=== PATIENT | female | born 1960 | race Caucasian/White ===

== ENCOUNTER 2018-11-01 13:24 | Inpatient (IN) | payer OTHER ==
--- NOTE | 2018-11-01 13:44 | PDOC ---
History of Present Illness - General Chief Complaint: Rectal Bleed Stated Complaint: Pain Time Seen by Provider: 11/01/18 13:29 - History of Present Illness Initial Comments: 58 yo F h/o asthma, gastritis, external hemorroids, multisubstance abuse ( cocaine, cig and EtOH) p/w bloody stool x 2 episodes since last night. She endorses chunks of bright red blood in stool associated with dizziness, abd pain , diaphoresis. She described the first episode of bloody stool as diarrhea mixed with blood, second episode as chunks of blood without diarrhea. The abd pain is located in b/l lower quadrants, travels left to right then vice versa, 8 /10, comes and goes, sharp. Last colonoscopy 2 years ago with findings of poylps and external hemorroids, told to repeat in 3 years. Denies NSAID use, fever, chills. 11/01/18 13:51 Send CBC, CMP, coags, EKG, T&S 11/01/18 14:32 Labs normal, pending rectal exam. will repeat cbc in 3 hours and observe the pt for any more bleeding Past History - Past Medical History Allergies/Adverse Reactions: Allergies Allergy/AdvReac Type Severity Reaction Status Date / Time No Known Allergies Allergy Verified 11/01/18 13:30 Home Medications: Ambulatory Orders Unobtainable 11/01/18 - Suicide/Smoking/Psychosocial Hx Smoking History: Current every day smoker Number of Cigarettes Smoked Daily: 10 Information on smoking cessation initiated: No Hx Alcohol Use: Yes (1 pint vodka daily x 1 month) Drug/Substance Use Hx: No Substance Use Type: Cocaine (last use yesterday sniffed) Review of Systems - Review of Systems Able to Perform ROS?: Yes Is the patient limited Haitian proficient: No Constitutional: No: Chills, Fever Respiratory: No: Cough, Shortness of Breath Cardiac (ROS): No: Chest Pain ABD/GI: Yes: Rectal Bleeding *Physical Exam - Vital Signs Last Vital Signs Temp Pulse Resp BP Pulse Ox 98.1 F 110 H 20 130/81 98 11/01/18 13:30 11/01/18 13:30 11/01/18 13:30 11/01/18 13:30 11/01/18 13:30 - Physical Exam General Appearance: Yes: Appropriately Dressed, Other (in pain, uncomfortable) Respiratory/Chest: positive: Lungs Clear, Normal Breath Sounds Cardiovascular: positive: S1, S2, Tachycardia. negative: Edema, JVD, Murmur Gastrointestinal/Abdominal: positive: Normal Bowel Sounds, Tender, Soft. negative: Guarding, Rebound Rectal Exam: positive: heme positive stool, hemorrhoids (external) Neurologic: positive: egg gatherer II-XII NML intact, Fully Oriented, Alert ED Treatment Course - LABORATORY CBC & Chemistry Diagram: 11/01/18 13:46 11/01/18 13:46 *DC/Admit/Observation/Transfer Diagnosis at time of Disposition: Bleeding per rectum - Discharge Dispostion Decision to Admit order: Yes - Referrals - Patient Instructions - Post Discharge Activity
[2018-11-01 13:57] LABS: BASO % 0.9 % (0-2.0); EOS % 1.5 % (0-4.5); HEMOGLOBIN 15.5 GM/dL (10.7-15.3); LYMPH % 20.2 % (8-40); MCH 30.7 pg (25.7-33.7); MCHC 32.9 g/dl (32.0-36.0); MEAN CELL VOLUME 93.3 fl (80-96); MEAN PLT VOLUME 7.8 fl (7.5-11.1); MONO % 6.2 % (3.8-10.2); NEUT % 71.2 % (42.8-82.8); PLATELET COUNT 304 K/MM3 (134-434); RBC 5.04 M/mm3 (3.60-5.2); RDW 14.2 % (11.6-15.6); WHITE BLOOD COUNT 7.7 K/mm3 (4.0-10.0)
[2018-11-01] MEDS ORDERED: SIMETHICONE 80 MG TAB.CHEW (FP) PO ONE ×2 (14:10→15:12)
[2018-11-01 14:15] LABS: INR 1.03 (0.83-1.09); PROTHROMBIN TIME (PATIENT) 12.1 SEC (9.7-13.0)
[2018-11-01 14:17] LABS: ACTIVATED PTT 31.6 SECONDS (25.2-36.5)
[2018-11-01 14:20] LABS: ALBUMIN 3.5 g/dl (3.4-5.0); ALK PHOS 83 U/L (45-117); ANION GAP 5 MMOL/L (8-16); BILIRUBIN,TOTAL 0.5 mg/dL (0.2-1); BLOOD UREA NITROGEN 13 mg/dL (7-18); CHLORIDE 107 mmol/L (98-107); CO2 26 mmol/L (21-32); GLUCOSE,RANDOM 117 mg/dL (74-106); POTASSIUM 3.7 mmol/L (3.5-5.1); SGOT/AST 23 U/L (15-37); SGPT/ALT 22 U/L (13-61); SODIUM 139 mmol/L (136-145); TOT PROT 6.8 g/dl (6.4-8.2)
[2018-11-01] MEDS ORDERED: MAG HYDROX/AL HYDROX/SIMETH 30 ML UNIT-DOSE CUP PO ONE (14:51)
--- NOTE | 2018-11-01 15:29 | PDOC ---
Attending Attestation - Resident Resident Name: Isai Darby - ED Attending Attestation I have performed the following: I have examined & evaluated the patient, The case was reviewed & discussed with the resident, I agree w/resident's findings & plan, Exceptions are as noted - HPI HPI: 11/01/18 16:19 The patient is a 58 year old female, with a significant PMH of asthma, gastritis , external hemorrhoids, multi substance abuse (cocaine, tobacco and EtOH) who presents to the emergency department with 2 episodes of bright red blood per rectum last night. The patient states she had chunks and clots of bright red blood in the toilet mixed with her brown stool with associated lightheadness, abdominal cramping and diaphoresis. The patient describes the abdominal pain as sharp, intermittent, radiating back and forth from the LLQ to RLQ, rated 8/10 in intensity. The patient states her most recent colonoscopy was 2 years ago and GI found polyps and external hemorrhoids, told to repeat in 3 years. The patient denies chest pain, shortness of breath, headache. Denies fever, chills, nausea, vomit and constipation. Denies dysuria, frequency, urgency and hematuria. Allergies: NKA - Physicial Exam PE: 11/01/18 16:21 agree with resident exam Well appearing, comfortable tachycardic but regular, no MRG CTAB No abd ttp, no rebound, guarding, or distention Equal strength and sensation b/l No LE edema - Medical Decision Making 11/01/18 16:12 58yo F hx CAD, DM presents to the ED with BRBPR x2, including clots. Vitals with tachycardia, otherwise wnl. Exam with no abd ttp. Concern for diverticulosis bleed. Plan to check labs, admit to observation. Will hold off on imaging at this time as pt is not tender on serial abd exams. Pt accepted for admission to Dr. Alberts Case discussed in detail with admitting physician including history, physical exam and ancillary studies. Admitting physician has assumed care for the patient, will follow all pending diagnostics and will complete the evaluation and treatment. Heart Score/ECG Review #1 11/01/18 16:26 Twelve-lead EKG was performed and reviewed by me. Normal sinus rhythm, rate 74. Normal axis. No ST elevations or T-wave inversions.
--- NOTE | 2018-11-01 16:24 | HP ---
Admitting History and Physical - Admission Chief Complaint: came in for abdominal pain and bloody stools History of Present Illness: 58 yo F h/o asthma, gastritis, external hemorroids, multisubstance abuse ( cocaine, cig and EtOH) p/w bloody stool x 2 episodes since last night. She endorses chunks of bright red blood in stool associated with dizziness, abd pain , diaphoresis. She described the first episode of bloody stool as diarrhea mixed with blood, second episode as chunks of blood without diarrhea. The abd pain is located in b/l lower quadrants, travels left to right then vice versa, , comes and goes, sharp. Last colonoscopy 2 years ago with findings of poylps and external hemorroids, told to repeat in 3 years. Denies NSAID use, fever, chills. History Source: Patient - Past Medical History Pulmonary: Yes: Asthma Gastrointestinal: Yes: Gastritis - Smoking History Smoking history: Current every day smoker Aproximately how many cigarettes per day: 10 - Alcohol/Substance Use Hx Alcohol Use: Yes (1 pint vodka daily x 1 month) Home Medications - Allergies Allergies/Adverse Reactions: Allergies Allergy/AdvReac Type Severity Reaction Status Date / Time No Known Allergies Allergy Verified 11/01/18 13:30 - Home Medications Home Medications: Ambulatory Orders Unobtainable 11/01/18 Physical Examination Vital Signs: Vital Signs Temperature 98.1 F 11/01/18 13:30 Pulse Rate 110 H 11/01/18 13:30 Respiratory Rate 20 11/01/18 13:30 Blood Pressure 130/81 11/01/18 13:30 O2 Sat by Pulse Oximetry (%) 98 11/01/18 13:30 Labs: CBC, BMP 11/01/18 13:46 11/01/18 13:46 Problem List - Problems (1) Bleeding per rectum Assessment/Plan: nPO ivf cbc q8hr ppi gi consult ct scan Code(s): K62.5 - HEMORRHAGE OF ANUS AND RECTUM
[2018-11-01] MEDS ORDERED: MORPHINE SULFATE 2 MG/ML VIAL IVPUSH PRN (16:25)
[2018-11-01] MEDS ORDERED: SODIUM CHLORIDE 1,000 ML IV SCH (16:30)
[2018-11-01 20:59] VITALS: BMI 22.3
[2018-11-01] MEDS ORDERED: PT OWN MED DRAWER 7, Y5N ONE (21:41)
[2018-11-01] MEDS: PANTOPRAZOLE SODIUM 40 MG VIAL IVPUSH SCH (21:58)
[2018-11-02 07:43] LABS: HEMATOCRIT 39.9 % (32.4-45.2); HEMOGLOBIN 13.1 GM/dL (10.7-15.3); MCH 30.4 pg (25.7-33.7); MCHC 32.8 g/dl (32.0-36.0); MEAN CELL VOLUME 92.8 fl (80-96); MEAN PLT VOLUME 7.9 fl (7.5-11.1); PLATELET COUNT 267 K/MM3 (134-434); RDW 13.8 % (11.6-15.6); WHITE BLOOD COUNT 6.3 K/mm3 (4.0-10.0)
[2018-11-02 08:01] LABS: ALBUMIN 2.8 g/dl (3.4-5.0); ALK PHOS 68 U/L (45-117); AMYLASE 30 U/L (25-115); ANION GAP 6 MMOL/L (8-16); BILIRUBIN,TOTAL 0.4 mg/dL (0.2-1); BLOOD UREA NITROGEN 11 mg/dL (7-18); CALCIUM 8.2 mg/dL (8.5-10.1); CHLORIDE 111 mmol/L (98-107); CO2 25 mmol/L (21-32); CREATININE 0.8 mg/dL (0.55-1.3); GLUCOSE,RANDOM 65 mg/dL (74-106); LIPASE 82 U/L (73-393); MAGNESIUM 1.9 mg/dL (1.8-2.4); PHOSPHOROUS 3.2 mg/dL (2.5-4.9); POTASSIUM 3.4 mmol/L (3.5-5.1); SGOT/AST 15 U/L (15-37); SGPT/ALT 22 U/L (13-61); SODIUM 142 mmol/L (136-145); TOT PROT 5.6 g/dl (6.4-8.2)
[2018-11-02] MEDS: PANTOPRAZOLE SODIUM 40 MG VIAL IVPUSH SCH (10:03)
--- NOTE | 2018-11-02 10:22 | CON.GI ---
Consult Consult Specialty:: GI: For Dr. James who resumes care 11/04 Referred by:: Dr. Lexus Avalos Reason for Consultation:: Rectal bleeding - History of Present Illness Chief Complaint: Rectal bleeding and abdominal pain History of Present Illness: 58F admitted for evaluation of rectal bleeding and abdominal pain. She states that she was in [place] up until 2 days ago when she developed lower abdominal pain along with rectal bleeding. The night prior she used intranasal cocaine and drank alcohol. No bleeding today. Last bleeding yesterday. No similar episodes in the past but believes that she had an episode of diverticulitis in [place] a couple of years ago. She believes that her last colonoscopy was 2 years ago in [place], that polyps were removed and a 3 year follow-up was advised. - History Source History Provided By: Patient - Past Medical History Pulmonary: Yes: Asthma Gastrointestinal: Yes: Diverticulitis, Diverticulosis, Gastritis, Other (Colon polyps) ...: No Psych: Yes: Addictions (Intranasal cocaine and etoh abuse) - Past Surgical History Additional Surgical History: Denies - Alcohol/Substance Use Hx Alcohol Use: Yes (1 pint vodka daily x 1 month) History of Substance Use: reports: Cocaine - Smoking History Smoking history: Current every day smoker Aproximately how many cigarettes per day: 10 - Social History Usual Living Arrangement: Alone ADL: Independent Occupation: Dump[employer] Place of : [facility] History of Recent Travel: No Home Medications - Allergies Allergies/Adverse Reactions: Allergies Allergy/AdvReac Type Severity Reaction Status Date / Time No Known Allergies Allergy Verified 11/01/18 13:30 - Home Medications Home Medications: Ambulatory Orders Unobtainable 11/01/18 Family Disease History - Family Disease History Family Disease History: Other: Father (Alive: dementia), Mother (: 82: Lung Ca), Brother (4, 1 ), Son (1, healthy), Daughter (3, healthy) Other Family History: No family h/o colon cancer or other GI malignancy Review of Systems - Review of Systems Constitutional: denies: Chills Cardiovascular: denies: Chest Pain Respiratory: denies: Cough, SOB Gastrointestinal: reports: Abdominal Pain, Rectal Bleeding Physical Exam-GI Vital Signs: Vital Signs Temperature 98 F 11/02/18 05:00 Pulse Rate 82 11/02/18 05:00 Respiratory Rate 18 11/02/18 05:00 Blood Pressure 143/77 11/02/18 05:00 O2 Sat by Pulse Oximetry (%) 98 11/02/18 04:00 Constitutional: Yes: Calm Eyes: No: Sclera Icterus Cardiovascular: Yes: Regular Rate and Rhythm. No: Murmur Respiratory: Yes: CTA Bilaterally Gastrointestinal Inspection: No: Scars ...Auscultate: Yes: Normoactive Bowel Sounds ...Palpate: Yes: Soft, Tenderness (TTP LLQ) ...Percussion: No: Tympanitic ...Rectal Exam: Yes: Other (Senior Principal Process Engineer present: + rectal prolapse, light brown stool in rectal vault, no blood) Edema: No (No LE edema) Neurological: Yes: Alert, Oriented Labs: CBC, BMP 11/02/18 05:00 11/02/18 05:00 INR, PTT INR 1.03 (0.83-1.09) 11/01/18 13:46 Imaging - Results Cat Scan: Image Reviewed (Not read yet: images reviewed: fat stranding around proximal sigmoid and to lesser extent distal descending. + diverticulosis.) Problem List - Problems (1) Colitis Assessment/Plan: Suspect ischemic colitis in the setting of intranasal cocaine use given location of inflammatory changes in CT scan and painful rectal bleeding. Diverticulitis remains in differential as well. Advise: NPO except meds IV hydration IV Abx AM Labs If worsening pain / fevere / leukocytosis, obtain surgical consult If LLQ pain improving, advance to clears Will need follow-up with her rn infusion upon discharge Advised need for cocaine/alcohol cessation. Will need further substance abuse counseling per PMD Code(s): K52.9 - NONINFECTIVE GASTROENTERITIS AND COLITIS, UNSPECIFIED
[2018-11-02] MEDS ORDERED: DEXTROSE 5%-0.45% SALINE 1,000 ML IV SCH (10:45)
--- NOTE | 2018-11-02 11:38 | EKG ---
Test Reason : Blood Pressure : / mmHG Vent. Rate : 074 BPM Atrial Rate : 074 BPM P-R Int : 150 ms QRS Dur : 086 ms QT Int : 372 ms P-R-T Axes : -38 037 054 degrees QTc Int : 412 ms UNUSUAL P AXIS, POSSIBLE ECTOPIC ATRIAL RHYTHM ABNORMAL ECG NO PREVIOUS ECGS AVAILABLE Confirmed by KAROLINE ALVA MD ([id number]) on 11/02/2018 11:37:39 AM Referred By: Confirmed By:KAROLINE ALVA MD
--- NOTE | 2018-11-02 14:35 | PN ---
Progress Note, Physician - Current Medication List Current Medications: Active Medications Levofloxacin (Levaquin 500 Mg Premixed Ivpb -) 500 mg in 100 mls @ 100 mls/hr IVPB DAILY JOSE; Protocol Last Admin: 11/02/18 12:06 Dose: 100 mls/hr Metronidazole (Flagyl 500mg Premixed Ivpb -) 500 mg in 100 mls @ 100 mls/hr IVPB Q8H-IV JOSE Last Admin: 11/02/18 11:02 Dose: 100 mls/hr Dextrose/Sodium Chloride (D5-1/2ns -) 1,000 mls @ 100 mls/hr IV ASDIR JOSE Last Admin: 11/02/18 10:53 Dose: 100 mls/hr Morphine Sulfate (Morphine Sulfate) 2 mg IVPUSH Q6H PRN PRN Reason: PAIN LEVEL 7 - 10 - Objective Vital Signs: Vital Signs Temperature 99 F 11/02/18 09:00 Pulse Rate 78 11/02/18 09:00 Respiratory Rate 18 11/02/18 09:00 Blood Pressure 130/52 L 11/02/18 09:00 O2 Sat by Pulse Oximetry (%) 96 11/02/18 09:00 Cardiovascular: Yes: Regular Rate and Rhythm Respiratory: Yes: Regular, CTA Bilaterally Gastrointestinal: Yes: Normal Bowel Sounds, Soft. No: Tenderness Labs: CBC, BMP 11/02/18 05:00 11/02/18 05:00 INR, PTT INR 1.03 (0.83-1.09) 11/01/18 13:46 Problem List - Problems (1) Colitis Assessment/Plan: NPO except meds IV hydration IV Abx AM Labs Code(s): K52.9 - NONINFECTIVE GASTROENTERITIS AND COLITIS, UNSPECIFIED (2) Bleeding per rectum Code(s): K62.5 - HEMORRHAGE OF ANUS AND RECTUM (3) Substance abuse Assessment/Plan: -counseling Code(s): F19.10 - OTHER PSYCHOACTIVE SUBSTANCE ABUSE, UNCOMPLICATED
[2018-11-02] MEDS: D5-1/2NS+40 MEQ KCL - 40 MEQ/1,000 ML INFUS.BAG IV SCH (18:25)
[2018-11-02] MEDS ORDERED: PT OWN MED DRAWER 7, Y5N ONE ×2 (22:00→23:07)
[2018-11-03 08:03] LABS: BASO % 0.9 % (0-2.0); EOS % 4.5 % (0-4.5); HEMATOCRIT 39.4 % (32.4-45.2); LYMPH % 35.6 % (8-40); MCH 30.5 pg (25.7-33.7); MCHC 33.1 g/dl (32.0-36.0); MEAN CELL VOLUME 92.3 fl (80-96); MEAN PLT VOLUME 7.7 fl (7.5-11.1); MONO % 8.2 % (3.8-10.2); NEUT % 50.8 % (42.8-82.8); PLATELET COUNT 269 K/MM3 (134-434); RBC 4.27 M/mm3 (3.60-5.2); RDW 13.4 % (11.6-15.6); WHITE BLOOD COUNT 4.7 K/mm3 (4.0-10.0)
[2018-11-03 08:22] LABS: ANION GAP 4 MMOL/L (8-16); BLOOD UREA NITROGEN 5 mg/dL (7-18); CALCIUM 8.4 mg/dL (8.5-10.1); CHLORIDE 109 mmol/L (98-107); CO2 29 mmol/L (21-32); CREATININE 0.7 mg/dL (0.55-1.3); GLUCOSE,RANDOM 93 mg/dL (74-106); POTASSIUM 4.3 mmol/L (3.5-5.1); SODIUM 142 mmol/L (136-145)
[2018-11-03 08:24] LABS: ALBUMIN 2.9 g/dl (3.4-5.0); ALK PHOS 66 U/L (45-117); ANION GAP 4 MMOL/L (8-16); BILIRUBIN,TOTAL 0.4 mg/dL (0.2-1); BLOOD UREA NITROGEN 6 mg/dL (7-18); CALCIUM 8.1 mg/dL (8.5-10.1); CHLORIDE 109 mmol/L (98-107); CO2 29 mmol/L (21-32); CREATININE 0.7 mg/dL (0.55-1.3); GLUCOSE,RANDOM 91 mg/dL (74-106); POTASSIUM 4.2 mmol/L (3.5-5.1); SGOT/AST 21 U/L (15-37); SGPT/ALT 16 U/L (13-61); SODIUM 141 mmol/L (136-145); TOT PROT 5.6 g/dl (6.4-8.2)
[2018-11-03] MEDS: D5-1/2NS+40 MEQ KCL - 40 MEQ/1,000 ML INFUS.BAG IV SCH ×2 (10:50→18:30)
--- NOTE | 2018-11-03 10:52 | PN.GI ---
GI Progress Note Subjective: For Dr. James who resumes care 11/04 Patient states abdominal pain improved No rectal bleeding - Objective Vital Signs: Vital Signs Temperature 97.7 F 11/03/18 06:00 Pulse Rate 67 11/03/18 06:00 Respiratory Rate 18 11/03/18 06:00 Blood Pressure 116/68 11/03/18 06:00 O2 Sat by Pulse Oximetry (%) 97 11/02/18 21:00 Constitutional: Calm Eyes: No: Sclera Icterus Cardiovascular: Yes: Regular Rate and Rhythm Respiratory: Yes: CTA Bilaterally Gastrointestinal Inspection: No: Distention ...Palpate: Yes: Tenderness (mild TTP llq, improved from yesterday) Edema: No (No LE edema) Neurological: Yes: Alert Labs: CBC, BMP 11/03/18 06:10 11/03/18 06:10 INR, PTT INR 1.03 (0.83-1.09) 11/01/18 13:46 - ....Imaging Cat Scan: Report Reviewed Problem List - Problems (1) Colitis Assessment/Plan: Diverticulitis vs. Ischemic colitis involving sigmoid / descending colon: IV Hydration Advance to clears IV Abx Upon discharge would treat as possible diverticulitis and given Abc for 10 days , including the days on IV Abx during admission Code(s): K52.9 - NONINFECTIVE GASTROENTERITIS AND COLITIS, UNSPECIFIED
--- NOTE | 2018-11-03 12:40 | PN ---
Progress Note, Physician Chief Complaint: AWAKE ALERT EVENTS AND NOTES REVIEWED BRBPR - Current Medication List Current Medications: Active Medications Levofloxacin (Levaquin 500 Mg Premixed Ivpb -) 500 mg in 100 mls @ 100 mls/hr IVPB DAILY JOSE; Protocol Last Admin: 11/03/18 10:49 Dose: 100 mls/hr Metronidazole (Flagyl 500mg Premixed Ivpb -) 500 mg in 100 mls @ 100 mls/hr IVPB Q8H-IV JOSE Last Admin: 11/03/18 10:49 Dose: 100 mls/hr Dextrose/Sodium Chloride (D5-1/2ns+40 Meq Kcl -) 40 meq in 1,000 mls @ 125 mls/ hr IV ASDIR JOSE Last Admin: 11/03/18 10:50 Dose: 125 mls/hr Morphine Sulfate (Morphine Sulfate) 2 mg IVPUSH Q6H PRN PRN Reason: PAIN LEVEL 7 - 10 - Objective Vital Signs: Vital Signs Temperature 97.7 F 11/03/18 06:00 Pulse Rate 67 11/03/18 06:00 Respiratory Rate 18 11/03/18 06:00 Blood Pressure 116/68 11/03/18 06:00 O2 Sat by Pulse Oximetry (%) 97 11/02/18 21:00 Constitutional: Yes: No Distress Eyes: Yes: WNL HENT: Yes: WNL Neck: Yes: WNL Gastrointestinal: Yes: WNL Musculoskeletal: Yes: WNL Extremities: Yes: WNL Edema: No Peripheral Pulses WNL: Yes Neurological: Yes: WNL ...Motor Strength: WNL Psychiatric: Yes: WNL Labs: CBC, BMP 11/03/18 06:10 11/03/18 06:10 INR, PTT INR 1.03 (0.83-1.09) 11/01/18 13:46 Problem List - Problems (1) Bleeding per rectum Code(s): K62.5 - HEMORRHAGE OF ANUS AND RECTUM (2) Colitis Code(s): K52.9 - NONINFECTIVE GASTROENTERITIS AND COLITIS, UNSPECIFIED (3) Substance abuse Code(s): F19.10 - OTHER PSYCHOACTIVE SUBSTANCE ABUSE, UNCOMPLICATED Assessment/Plan IV ABX CLEAR LIQUIDS GI EVAL APPRECIATED CHECK CBC
[2018-11-04] MEDS ORDERED: PT OWN MED DRAWER 7, Y5N ONE (06:24)
[2018-11-04 07:05] LABS: HEMATOCRIT 39.9 % (32.4-45.2); HEMOGLOBIN 13.2 GM/dL (10.7-15.3); MCH 30.7 pg (25.7-33.7); MCHC 33.1 g/dl (32.0-36.0); MEAN CELL VOLUME 92.9 fl (80-96); MEAN PLT VOLUME 7.7 fl (7.5-11.1); PLATELET COUNT 272 K/MM3 (134-434); RBC 4.29 M/mm3 (3.60-5.2); RDW 13.8 % (11.6-15.6); WHITE BLOOD COUNT 3.9 K/mm3 (4.0-10.0)
[2018-11-04 07:29] LABS: ALK PHOS 64 U/L (45-117); ANION GAP 6 MMOL/L (8-16); BILIRUBIN,TOTAL 0.2 mg/dL (0.2-1); BLOOD UREA NITROGEN 4 mg/dL (7-18); CALCIUM 8.5 mg/dL (8.5-10.1); CHLORIDE 108 mmol/L (98-107); CO2 27 mmol/L (21-32); CREATININE 0.8 mg/dL (0.55-1.3); GLUCOSE,RANDOM 107 mg/dL (74-106); POTASSIUM 4.2 mmol/L (3.5-5.1); SGOT/AST 23 U/L (15-37); SGPT/ALT 17 U/L (13-61); SODIUM 140 mmol/L (136-145); TOT PROT 5.8 g/dl (6.4-8.2)
--- NOTE | 2018-11-04 07:31 | PN.GI ---
GI Progress Note Subjective: Patient states that lower abdominal pain has imrpoved and rectal bleeding has subsided. Patient states she is hungry and wants to eat. Denies nausea, vomiting, diarrhea. No leukocytosis noted and Hg 13.2. - Objective Vital Signs: Vital Signs Temperature 97.9 F 11/04/18 05:43 Pulse Rate 74 11/04/18 05:43 Respiratory Rate 18 11/04/18 05:43 Blood Pressure 118/75 11/04/18 05:43 O2 Sat by Pulse Oximetry (%) 97 11/03/18 20:42 Constitutional: No Distress, Calm Eyes: Yes: Conjunctiva Clear HENT: Yes: Atraumatic Cardiovascular: Yes: Regular Rate and Rhythm Respiratory: Yes: Regular, CTA Bilaterally Gastrointestinal Inspection: Yes: WNL. No: Ascites, Distention, Hernia, Scars, Other ...Auscultate: Yes: Normoactive Bowel Sounds. No: Hyperactive Bowel Sounds, Hypoactive Bowel Sounds, No Bowel Sounds, Other ...Palpate: Yes: Tenderness (RLQ and LLQ). No: Firm/Rigid, Guarding, Hepatomegaly, Mass, Pulsatile Mass, Soft, Splenomegaly, Tenderness, Epigastium, Tenderness, Rebound, Other ...Percussion: Yes: Tympanitic. No: Dullness, Fluid Wave, Other Neurological: Yes: Alert, Oriented Psychiatric: Yes: Alert, Oriented Labs: CBC, BMP 11/04/18 05:10 INR, PTT INR 1.03 (0.83-1.09) 11/01/18 13:46 Active Medications Generic Name Dose Route Start Last Admin Trade Name Jamir PRN Reason Stop Dose Admin Levofloxacin 500 mg in 100 mls @ 100 mls/hr 11/02/18 10:45 11/03/18 10:49 Levaquin 500 Mg Premixed Ivpb - IVPB 100 mls/hr DAILY JOSE Administration Protocol Metronidazole 500 mg in 100 mls @ 100 mls/hr 11/02/18 10:45 11/04/18 01:48 Flagyl 500mg Premixed Ivpb - IVPB 100 mls/hr Q8H-IV JOSE Administration Dextrose/Sodium Chloride 40 meq in 1,000 mls @ 125 mls/hr 11/02/18 18:15 02/14 18:30 D5-1/2ns+40 Meq Kcl - IV Not Given ASDIR JOSE Morphine Sulfate 2 mg 11/01/18 16:25 Morphine Sulfate IVPUSH Q6H PRN PAIN LEVEL 7 - 10 Problem List - Problems (1) Bleeding per rectum Assessment/Plan: >monitor Hg >transfuse if Hg <8.0 Code(s): K62.5 - HEMORRHAGE OF ANUS AND RECTUM (2) Colitis Assessment/Plan: R>continue IV flagyl and levoquin >tolerating clear liquid diet >continue IV hydration Code(s): K52.9 - NONINFECTIVE GASTROENTERITIS AND COLITIS, UNSPECIFIED
[2018-11-04] MEDS: D5-1/2NS+40 MEQ KCL - 40 MEQ/1,000 ML INFUS.BAG IV SCH (09:23)
[2018-11-04 09:31] VITALS: BP 104/77; PULSE 87
[2018-11-04 09:33] VITALS: TEMP 98.5
--- NOTE | 2018-11-04 13:35 | DS ---
Physical Examination Vital Signs: Vital Signs Temperature 98.5 F 11/04/18 09:30 Pulse Rate 87 11/04/18 09:30 Respiratory Rate 18 11/04/18 09:30 Blood Pressure 104/77 11/04/18 09:30 O2 Sat by Pulse Oximetry (%) 97 11/03/18 20:42 Constitutional: Yes: Calm Cardiovascular: Yes: Regular Rate and Rhythm, S1, S2 Respiratory: Yes: CTA Bilaterally Gastrointestinal: Yes: Normal Bowel Sounds, Soft Edema: No Neurological: Yes: Alert, Oriented Labs: CBC, BMP 11/04/18 05:10 11/04/18 05:10 Discharge Summary Reason For Visit: GASTROINTESTINAL HEMORRAGE Current Active Problems Bleeding per rectum (Acute) Colitis (Acute) Substance abuse (Acute) Other Procedures: ct scan of abdomen: acute diverticulitis Hospital Course: - Admission Chief Complaint: came in for abdominal pain and bloody stools History of Present Illness: 58 yo F h/o asthma, gastritis, external hemorroids, multisubstance abuse ( cocaine, cig and EtOH) p/w bloody stool x 2 episodes since last night. She endorses chunks of bright red blood in stool associated with dizziness, abd pain , diaphoresis. She described the first episode of bloody stool as diarrhea mixed with blood, second episode as chunks of blood without diarrhea. The abd pain is located in b/l lower quadrants, travels left to right then vice versa, 8 /10, comes and goes, sharp. Last colonoscopy 2 years ago with findings of poylps and external hemorroids, told to repeat in 3 years. Denies NSAID use, fever, chills. in hospital for acute diverticulitis iv abx liquid diet now regular diet h/h stable no need for transfusion Condition: Improved - Instructions Referrals: Trip James MD [Staff Physician] - 2 Weeks Disposition: HOME - Home Medications Comprehensive Discharge Medication List: Ambulatory Orders Unobtainable 11/01/18
== END 2018-11-04 14:25 | disposition home or self-care (01) | DRG 253 ==
LOC: JER 13:24 → JERBED 15:51 → OBSVTOIN 18:23 → J7W 19:01
PROVIDERS: ADMIT Student in an Organized Health Care Education/Training Program; ATTEND Student in an Organized Health Care Education/Training Program
DX: K62.5 Hemorrhage of anus and rectum (principal); K64.4 Residual hemorrhoidal skin tags; J45.909 Unspecified asthma, uncomplicated; F17.210 Nicotine dependence, cigarettes, uncomplicated; F14.20 Cocaine dependence, uncomplicated; K52.9 Noninfective gastroenteritis and colitis, unspecified; K29.70 Gastritis, unspecified, without bleeding; K57.90 Diverticulosis of intestine, part unspecified, without perforation or abscess without bleeding; K63.5 Polyp of colon; F19.10 Other psychoactive substance abuse, uncomplicated
CPT/HCPCS: 36415; 74176-TC; 80048; 80053; 82150; 82272; 83690; 83735; 84100; 85025; 85027; 85610; 85730; 86140; 93005; 93010; 99285-25; G0378; J7030